=== PATIENT | male | born 1985 | race African-American/Black ===

== ENCOUNTER 2019-08-16 09:13 | Emergency (ER) | payer OTHER ==
[2019-08-16 09:38] VITALS: BP 155/103
[2019-08-16 09:57] LABS: Influenza B Molecular POSITIVE (Negative)
--- NOTE | 2019-08-16 10:00 | UC ---
FLU HPI - HPI Summary HPI Summary: 34-year-old male presenting with sore throat, nasal congestion, productive cough , and chills 2 days. Patient also notes intermittent body aches and feeling feverish. Denies shortness of breath and wheezing. Denies nausea and vomiting. Notes decreased appetite but normal fluid intake. Taking Tylenol for fever relief. Denies history of asthma. Former smoker. - History of Current Complaint Chief Complaint: UCGeneralIllness Stated Complaint: FEVER,SORE THROAT Hx Obtained From: Patient Pain Intensity: 1 - Allergy/Home Medications Allergies/Adverse Reactions: Allergies Allergy/AdvReac Type Severity Reaction Status Date / Time No Known Allergies Allergy Verified 08/16/19 09:32 Home Medications: Home Medications Lisinopril TAB* [Prinivil TAB*] 40 mg PO DAILY 08/16/19 [History Confirmed 08/16] amLODIPine TAB* [Norvasc 5 mg TAB*] 5 mg PO DAILY 08/16/19 [History Confirmed ] PMH/Surg Hx/FS Hx/Imm Hx Cardiovascular History: Hypertension - Surgical History Surgical History: None - Family History Known Family History: Positive: Unknown, Non-Contributory - Social History Alcohol Use: None Substance Use Type: None Smoking Status (MU): Never Smoked Tobacco Review of Systems All Other Systems Reviewed And Are Negative: Yes Constitutional: Positive: Fever, Chills ENT: Positive: Sore Throat, Sinus Congestion Respiratory: Positive: Cough. Negative: Shortness Of Breath Cardiovascular: Positive: Negative Gastrointestinal: Positive: Negative Musculoskeletal: Positive: Myalgia Neurological/Mental Status: Positive: Negative Physical Exam - Summary Physical Exam Summary: Vital Signs Reviewed: Yes A+Ox3, no distress, obese, diaphoretic Eyes: Conjunctiva Clear ENT: Hearing grossly normal, TM x 2 clear, moist, uvula midline, no exudate, + pharyngeal erythema Neck: Positive: Supple Respiratory: Positive: No respiratory distress, No accessory muscle use + CTA throughout no w/r Cardiovascular: RRR nl s1, s2 no m/r Musculoskeletal Exam: MALONE x 4 without difficulty Neurological: Positive: Alert Psychological: Positive: age appropriate behavior Skin: Positive: no rash, no ecchymosis Vital Signs: Initial Vital Signs Temp 99.2 F 08/16/19 09:34 Pulse 84 08/16/19 09:34 Resp 16 08/16/19 09:34 BP 155/103 08/16/19 09:34 Pulse Ox 97 08/16/19 09:34 Lab Results 08/16/19 Range/Units 09:54 Influenza B (Rapid) Positive H (Negative) Flu Course/Dx - Course Course Of Treatment: Positive rapid flu B. Educated patient on influenza and treatment with Tamiflu. Patient declined treatment with Tamiflu at this time. Educated on symptomatic treatment and instructed to follow up with PCP if needed. Patient voiced understanding and agreed with the treatment plan. - Differential Dx/Diagnosis Provider Diagnosis: Influenza B Discharge ED - Sign-Out/Discharge Documenting (check all that apply): Patient Departure All imaging exams completed and their final reports reviewed: No Studies - Discharge Plan Condition: Stable Disposition: HOME Patient Education Materials: Influenza (ED) Forms: *Work Release Referrals: Pearl Orourke MD [Primary Care Provider] - If Needed Additional Instructions: As discussed, you tested positive for influenza today. You may continue with tylenol and/or motrin for fever and pain relief. Get plenty of rest and increase your fluid intake. Follow up with your primary care provider if symptoms do not improve within 5-7 days. - Billing Disposition and Condition Condition: STABLE Disposition: Home
== END 2019-08-16 10:16 | disposition home or self-care (01) ==
LOC: UCEAST 09:13
DX: J10.1 Influenza due to other identified influenza virus with other respiratory manifestations (principal); I10 Essential (primary) hypertension; E66.9 Obesity, unspecified; Z79.899 Other long term (current) drug therapy
CPT/HCPCS: 99201; G0463

== ENCOUNTER 2019-10-04 08:44 | Emergency (ER) | payer OTHER ==
[2019-10-04 09:01] VITALS: BP 154/106
--- NOTE | 2019-10-04 09:28 | UC ---
Dental HPI - HPI Summary HPI Summary: The patient is a 34-year-old male with a 1-1-1/2 week history of right lower molar pain. The pain has gotten significantly worse. He has had a fever that responds to Tylenol. He denies any chest pain or shortness of breath. He denies any exposure to covid 19. - History of Current Complaint Chief Complaint: UCDentalProblem Stated Complaint: DENTAL/FEVER Time Seen by Provider: 10/04/19 09:08 Hx Obtained From: Patient Onset/Duration: Gradual Onset, Lasting Days Severity: Mild Pain Intensity: 2 Pain Scale Used: 0-10 Numeric Aggravating Factor(s): Chewing Alleviating Factor(s): Nothing Related History: Swelling Dental: 1 - red/swollen - Allergies/Home Medications Allergies/Adverse Reactions: Allergies Allergy/AdvReac Type Severity Reaction Status Date / Time No Known Allergies Allergy Verified 10/04/19 08:53 Home Medications: Home Medications Lisinopril TAB* [Prinivil TAB*] 40 mg PO DAILY 08/16/19 [History Confirmed 10/03] amLODIPine TAB* [Norvasc 5 mg TAB*] 5 mg PO DAILY 08/16/19 [History Confirmed ] Acetaminophen TAB* [Tylenol TAB*] 975 mg PO Q4H PRN 10/04/19 [History Confirmed 10/04/19] Penicillin VK 500 MG TAB(NF) [Penicillin VK 500 mg Tab] 500 mg PO QID #28 tab [Rx] PMH/Surg Hx/FS Hx/Imm Hx Previously Healthy: Yes Cardiovascular History: Hypertension - Surgical History Surgical History: None - Family History Known Family History: Positive: Cardiac Disease, Hypertension, Diabetes, Non- Contributory - Social History Alcohol Use: None Substance Use Type: None Smoking Status (MU): Never Smoked Tobacco Review of Systems All Other Systems Reviewed And Are Negative: Yes Constitutional: Positive: Negative Skin: Positive: Negative Eyes: Positive: Negative - Yesterday morning, and the sink was Some male medical record Dr. mock into the hospital signed this is done today so I go in and dressed her him with medical record ago that was some denied taking care of night her son is ENT: Positive: Dental Pain Respiratory: Positive: Negative Cardiovascular: Positive: Negative Gastrointestinal: Positive: Negative Genitourinary: Positive: Negative Motor: Positive: Negative Neurovascular: Positive: Negative Musculoskeletal: Positive: Negative Neurological/Mental Status: Positive: Negative Psychological: Positive: Negative Physical Exam Triage Information Reviewed: Yes Appearance: Well-Appearing, No Pain Distress, Well-Nourished Vital Signs: Initial Vital Signs Temp 97.7 F 10/04/19 08:49 Pulse 73 10/04/19 08:49 Resp 16 10/04/19 08:49 BP 154/106 10/04/19 08:49 Pulse Ox 94 10/04/19 08:49 Vital Signs Reviewed: Yes Eyes: Positive: Conjunctiva Clear ENT: Positive: Hearing grossly normal, Pharynx normal, Uvula midline. Negative : Nasal congestion, Nasal drainage, Tonsillar swelling, Tonsillar exudate Dental: Positive: Other: - see image Neck: Positive: Supple, Nontender, Enlarged Nodes @ - right ant cervical Respiratory Exam: Normal Respiratory: Positive: Lungs clear, Normal breath sounds, No respiratory distress, No accessory muscle use Cardiovascular: Positive: RRR, No Murmur Musculoskeletal: Positive: ROM Intact, No Edema Neurological: Positive: Alert Psychological Exam: Normal Skin Exam: Normal - Site patient is a Dental Complaint Course/Dx - Differential Dx/Diagnosis Provider Diagnosis: Dental abscess, she Discharge ED - Sign-Out/Discharge Documenting (check all that apply): Patient Departure All imaging exams completed and their final reports reviewed: No Studies - Discharge Plan Condition: Stable Disposition: HOME Prescriptions: Penicillin VK 500 MG TAB(NF) [Penicillin VK 500 mg Tab] 500 mg PO QID #28 tab Patient Education Materials: Dental Abscess (ED) Forms: *Work Release Referrals: Pearl Orourke MD [Primary Care Provider] - 2 Weeks (recheck in 2-4 weeks) Additional Instructions: tylenol recheck in 3 days if not better you need to find a dentist recheck bp in 4 weeks - Billing Disposition and Condition Condition: STABLE Disposition: Home
== END 2019-10-04 09:20 | disposition home or self-care (01) ==
LOC: UCEAST 08:44
DX: K04.7 Periapical abscess without sinus (principal); I10 Essential (primary) hypertension; Z79.899 Other long term (current) drug therapy
CPT/HCPCS: 99212; G0463